=== PATIENT | female | born 1985 | race African-American/Black ===

== ENCOUNTER 2021-01-31 06:35 | Observation (INO) | payer BC, OTHER ==
[~2021-01-31] VITALS: Ht 172.7 cm; Wt 70.3 kg
[~2021-01-31 06:35] MED LIST: INFED100 MG/2 M IVPB; PNV 29-1 TABLE1 EACH PO
[2021-01-31 08:00] VITALS: BP 101/57
[2021-01-31 14:20] VITALS: BP 107/76
--- NOTE | 2021-01-31 16:00 | NUR ---
PATIENT ARRIVED FROM PACU AT APPROX 1405. PATIENT IS A&OX4. PATIENT GOT UP TO BATHROOM WITH STANDBY ASSIST; DENIED DIZZINESS, GAIT IS STEADY-OK TO GET UP INDEPENDENTLY BUT EDUCATED ON USING CALL LIGHT IF NEEDED. PATIENT VOICING PAIN AROUND NECK AREA AT PARTIALLY RELIEVED WITH PRN PO ANALGESIC. PATIENT ON TELEMETRY; NSR ON MONITOR WITH NO ISSUES. POST OP DAY 1; SURGICAL DRESSING ON LOWER NECK REMAINS C/D/I. PATIENT VOICED "ALLERGIES ACTING UP" WITH SINUS DISCOMFORT. DR. TORIBIO WAS PAGED. ADMISSION HX AND EDUCATION COMPLETE, SCD'S ON, VITALS REMAIN STABLE. PATIENT VOICING NO FURTHER NEEDS. ENDORSED TO CHARGE NURSE. WILL CONTINUE FREQUENT MONITORING
[2021-01-31 19:28] VITALS: BP 92/55
--- NOTE | 2021-02-01 05:59 | NUR ---
Assumed pt care at 1900. A/OX4,VSS. C/o surgical site pain, N/V medicated per EMAR with relief reported. Up ad zion w/o problems,encouraged to call for help as needed and doing so. NSR on telemetry.Resting quietly at this time,will continue to monitor pt.
[2021-02-01 07:58] VITALS: BP 87/52
[2021-02-01] MEDS ORDERED: NORCO7.5 PO (11:05)
[2021-02-01] MEDS ORDERED: ZYRTEC10 MG PO (11:05)
[2021-02-01] MEDS ORDERED: CALTRATE-600 W1 EACH PO (11:07)
[2021-02-01] MEDS ORDERED: CALCITRIOL0.25 MCG PO (11:07)
[2021-02-01 11:19] VITALS: BP 87/52
--- NOTE | 2021-02-01 12:10 | NUR ---
PT IS A&O*4. ROOM AIR. GET UP AD DANILO. NO PAIN COMPLAINED. PROCEDURE DRESSING DRY AND INTACT, NO DRAIGNAGE SEEN FROM OUTSIDE. DR. TORIBIO ORDER RECHECK CALCIUM LEVEL IN BLOOD AND TOLD NURSE DISCHARGE PT IS CA LEVEL > 8. PT DISCHARGED AT 12:10 AFTER LAB RESULT COME BACK MET EXPECTATION >8. DISCHARGE AND MEDICATION INFO & EDUCATION GIVEN PATIENT AND FAMILY IN ROOM. IV AND TELE REMOVED. WILL KEEP MONITOR PATIENT'S SAFETY UNTIL PT LEAVE FLOOR.
--- NOTE | 2021-02-04 17:06 | PATH ---
[facility] [place] [place] [address] PATHOLOGY RPT PROCEDURE Name: JOEL CEJANILSJACYJuan Antonio Room #: 458-P [facility] Alexis Luevano#: [id number] Admission: 01/31/21 Date of : 83 Discharge: 02/01/21 Report #: [id number] Path Case #: [id number] [facility] Accession Number: [id number] . 01 Material submitted: . thyroid gland - THYROID . 01 Clinical history: . THYROIDECTOMY NONTOXIC MULTINODULAR GOITER . 02 Diagnosis: Thyroid, total thyroidectomy: - Multinodular hyperplasia with scattered foci of fibrosis and calcifications. - Negative for malignancy. 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 02 Electronically signed: . Nohemi Ribera MD, Pathologist NPI- [id number] . 01 Gross description: . The specimen is received in formalin, labeled "jill Matute". Received is a 101 g total thyroidectomy specimen. The left lobe measures 7.8 x 3.5 x 3.0 cm. The right lobe measures 5.5 x 3.9 x 3.3 cm. The isthmus is not grossly distinct. The capsule is disrupted and roughened in appearance. The specimen is inked as follows: Left anterior-blue, right anterior-green, posterior-black. Sectioning through the left lobe reveals multiple white-spicer to pink-spicer nodules ranging in size from 0.1-4.2 cm in maximum dimensions. The white-spicer nodules are solid in appearance, and located in the upper and lower poles. A slight amount of normal red-brown thyroid parenchyma is identified. Sectioning through the right lobe reveals multiple pink-spicer to light spicer nodules ranging in size from 0.5-4.2 cm in maximum dimensions. A slight amount of calcification is identified. The remainder of the right lobe is comprised of normal red-brown thyroid parenchyma. The specimen is submitted event representative as follows: . A1-A5 alternating sections of left lobe submitted from superior to inferior aspects, with solid nodule submitted in cassettes A1 and A5 A6-A10 alternating sections of right lobe submitted from superior to inferior aspects, with areas of calcification submitted in cassette A9. (CAA; 02/01/2021) QAC/QAC 02/01/2021 1817 Local . [address] [place] [address] PATHOLOGY RPT PROCEDURE Name: CHRISTIANO CEJAJACYJuan Antonio Room #: 458-P HARSHIL Luevano#: [id number] Admission: 01/31/21 Date of : 83 Discharge: 02/01/21 Report #: [id number] Path Case #: [id number] Pathologist provided ICD-10: E04.2 . 02 CPT . 266436 Specimen Comment: A courtesy copy of this report has been sent to [phone] Specimen Comment: Report sent to Performed at: [address], [place] [id number] MD Chi Kent MD Phone: [phone] Performed at: [address] [id number] MD Nohemi Ribear MD Phone: [phone]
--- NOTE | 2021-02-10 15:07 | O ---
[facility] [place] [address] [place] [address] OPERATIVE REPORT Name: SHAHRIAR CEJA Room #: 458-P [facility].Renetta#: [id number] Admission: 01/31/21 Attend Phys: Brett Camacho MD Discharge: 02/01/21 Date of : 83 Report #: [id number] THIS REPORT FOR: cc: FAM - Family physician unknown FAM - Family physician unknown Brett Camacho MD ~ DATE OF SERVICE: 01/31/2021 PREOPERATIVE DIAGNOSIS: Thyroid goiter. POSTOPERATIVE DIAGNOSIS: Thyroid goiter. PROCEDURE: Total thyroidectomy. DESCRIPTION OF PROCEDURE: The patient was brought to the operating room and placed in the supine position. General anesthesia was obtained. Mask inhalation was provided and oral endotracheal tube was inserted. The patient was prepped and draped for total thyroidectomy. She has a huge goiter that is visible from across the room. A 1% lidocaine with 1:100,000 epinephrine was infiltrated in the low midline neck, a natural occurring horizontal skin fold. The patient was prepped and draped sterilely. A 15 blade was used to incise the skin, natural occurring skin fold fingerbreadths above the sternal notch. Subcutaneous tissues were dissected sharply through the platysma and subplatysmal flap was developed superiorly to the thyroid cartilage, inferiorly to the sternal notch. The thyroid isthmus was identified. The strap muscles were divided in the midline. Strap muscles were retracted laterally off of the thyroid lobe on the left side, which is quite enormous. The superior pole vessels are isolated utilizing a right angle and ligated using a Harmonic scalpel. The lateral aspect of the thyroid capsule was dissected bluntly. The middle thyroid vein was ligated with a Harmonic scalpel as well. The inferior parathyroids were not identified. Superior parathyroid tissue was identified and peeled laterally thyroid capsule. 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 The dissection proceeded to the insertion point into the larynx. The thyroid is at Edgar's ligament and is peeled from the anterior trachea. The dissection proceeded on the opposite side. Exactly, again, the superior parathyroid was clearly identified, the inferior parathyroid was not. The recurrent laryngeal nerve was followed in its normal anatomic course on the right side to its insertion point into the larynx. Thyroid was from the trachea and delivered for permanent pathology, was divided at the isthmus for better retraction between the left and right side. The wound was examined for hemostasis, which was excellent, was achieved utilizing bipolar cautery. The wound was closed in multiple layers including strap muscles in the midline, platysmal layer, subcutaneous with subcuticular sutures and dressed sterilely. [address] [address] OPERATIVE REPORT Name: SHAHRIAR CEJA Room #: 458-P HARSHIL RodriguezRRenetta#: [id number] Admission: 01/31/21 Attend Phys: Brett Camacho MD Discharge: 02/01/21 Date of : 83 Report #: [id number] PLAN: The patient is admitted to observation for potential hypocalcemia following total thyroidectomy. She will be observed overnight and discharged once her calcium level is stable on oral calcium. She will follow up with me in a week. <ELECTRONICALLY SIGNED> By: Brett Camacho MD 02/10/21 1507 0810 [id number] Brett Camacho MD /nt
== END 2021-02-01 12:43 | disposition home or self-care (01) ==
LOC: TBA 06:35 → OR 06:35 → TBA 06:41 → OR 09:10 → 4W 14:29 → OR 15:50 → 4W 19:27
PROVIDERS: ADMIT Otolaryngology Plastic Surgery within the Head & Neck; ATTEND Otolaryngology Plastic Surgery within the Head & Neck
DX: E04.9 Nontoxic goiter, unspecified (principal); F17.210 Nicotine dependence, cigarettes, uncomplicated; Z88.8 Allergy status to other drugs, medicaments and biological substances
CPT/HCPCS: 50010; 50101; 50386; 50403; 52190; 56524; 56526; 56528; 57006; 62110; 62900; 65130; 65133; 70005